=== PATIENT | female | born 1940 | race Caucasian/White ===

== ENCOUNTER 2018-01-17 08:45 | Day surgery (SDC) | payer MEDICARE, OTHER ==
[~2018-01-17] VITALS: Ht 170.2 cm; Wt 88.5 kg
[~2018-01-17 08:45] MED LIST: ATENOLOL50 MG PO; FLUOXETINE HCL20 MG PO; HYDROCHLOROTH12.5 M1 PO; NAPROXEN500 MG PO; NORVASC5 MG PO; PRAVASTATIN SOD40 MG PO; ULTRAM50 MG PO
--- NOTE | 2018-01-17 12:25 | NUR ---
01/17/18 1225 Ariadne Alcala 1219 TO PACU, RESP EVEN UNLABORED. BOTH HANDS ELEVATED ON PILLOWS 1223 DENIES PAIN OR NAUSEA AT THIS TIME.
--- NOTE | 2018-01-17 12:54 | NUR ---
CRACKERS AND ICED WATER GIVEN. CALL LIGHT W/IN REACH. PT DENIES ADD'L NEEDS @ THIS TIME.
--- NOTE | 2018-01-17 13:53 | NUR ---
PT UP TO BR W/2 RN STANDBY. PT AMBULATES TO THE BATHROOM WELL W/LIMP WHICH IS BASELINE. PATIENT REPORTS SUCCESSFUL VOID AND AMBULATES BACK TO THE BATHROOM AND REPORTS LIGHT HEADEDNESS AND USES THE WALL TO STEADY HERSELF ON THE WAY BACK FROM THE BATHROOM. OXYGEN IS REMOVED PRIOR TO AMBULATING TO THE BATHROOM AND PATIENT O2 SATURATION IS 89-91% ON ROOM AIR WHEN SHE RETURNS TO HER ROOM. SANDWICH ORDERED FROM DIETARY. MORE ICED WATER GIVEN. PT CONTINUOUS TO BE MONITORED BY CONTINUOUS PULSE OXIMETERY.
--- NOTE | 2018-01-17 15:03 | NUR ---
PT REPORTS FEELING "NORMAL" AFTER EATING HER SANDWICH. DENIES LIGHT HEADEDNESS. PT'S COUSIN IS @ THE BS AND REPORTS SHE IS STAYING WITH THE PATIENT AT HOME FOR "A COUPLE OF DAYS". PT HAS NO DIFFICULTY EATING THE SANDWICH. DC INSTRUCTIONS ARE GIVEN IN PRESENCE OF HER COUSIN AND BOTH VERBALIZE UNDERSTANDING OF INSTRUCTIONS.
--- NOTE | 2018-01-17 15:39 | NUR ---
DARIN 1515: PT DRESSES SELF IN PRESENCE OF SY, COUSIN AND TRANSFERS HERSELF TO AND THEN TO PERSONAL VEHICLE AND DOES THAT WELL.
--- NOTE | 2018-01-19 07:09 | OR ---
[facility] [address], [place] [address] Signed DATE OF OPERATION: 01/17/2018 SURGEON: Vega Muhammad MD PREOPERATIVE DIAGNOSIS: Bilateral displaced distal radial fracture. POSTOPERATIVE DIAGNOSIS: Bilateral displaced distal radial fracture. PROCEDURES: Open reduction and internal fixation, right distal radial fracture. Closed reduction and percutaneous cannulated screw fixation of left distal radius fracture. ANESTHESIA: General. SPECIMENS AND COMPLICATIONS: There were no specimens or complications. TOURNIQUET TIME: About 45 minutes on the right and about 30 minutes on the left. WHAT WAS DONE: The patient was taken to the operating room. After anesthesia was induced and airway secured, the patient was positioned, prepped and draped in the routine sterile fashion on the right side. The arm was exsanguinated with an Esmarch bandage, the fracture was manipulatively reduced and it was placed in 5 pounds of fingertrap traction. A volar approach was made directly over the FCR tendon. The skin was divided sharply. Subcutaneous tissue was bluntly spread. The FCR tendon sheath was opened on the volar surface and then on the deep surface. A small self-retaining retractor was then placed and we swept all the volar contents in an ulnar direction. We then elevated a small portion of the pronator quadratus. This enabled us to fine tune the reduction under direct vision. Once we had done that we chose an 8 x 3 distal volar radial plate and positioned it under fluoroscopic control. It was secured proximally with three 2.6 mm screws and then distally with four smooth buttress pins. AP, lateral, and oblique fluoroscopy confirmed good alignment, position, and a stable construct. The wound was gently irrigated, closed in standard fashion, and a sterile dressing applied. Attention was then directed to the left side. Again, it was prepped and draped. Electronically Signed By: VEGA MUHAMMAD MD 01/19/18 0709 PATIENT NAME: PIPER MARSHALL OPERATIVE REPORT DATE OF : 40 REPORT #: [id number] PHYSICIAN: VEGA MUHAMMAD MD PCP: PRISCILA PATEL MD REPORT IS CONFIDENTIAL AND NOT TO BE RELEASED WITHOUT AUTHORIZATION [facility] [address], [place] [address] Signed Because there was an IV in the antecubital fossa, we simply wrapped the arm with an Esmarch bandage and left it wrapped around the mid forearm. We then reduced the fracture manipulatively. We made a small incision over the tip of the radial styloid. Using the tip of a #15 blade, we elevated the contents of the first dorsal compartment and gently reflected them out of the way. Then, under biplanar fluoroscopic control, we drill two guide pins from the 3.0 cannulated screw sets across the primary fracture line. Once we were happy with alignment and position, we replaced them with partially two threaded screws. This gave us good alignment, good position, and stable fixation. The wound was gently irrigated, closed in standard fashion and a sterile dressing applied. She was then placed in bilateral volar wrist splints. She was awakened and taken to the recovery room, where she arrived in stable condition. Counts were correct and antibiotic protocols were followed. Vega Muhammad MD WFB/MODL /[id number] Copies: ~ Electronically Signed By: VEGA MUHAMMAD MD 01/19/18 0709 PATIENT NAME: PIPER MARSHALL OPERATIVE REPORT DATE OF : 40 REPORT #: [id number] PHYSICIAN: VEGA MUHAMMAD MD PCP: PRISCILA PATEL MD REPORT IS CONFIDENTIAL AND NOT TO BE RELEASED WITHOUT AUTHORIZATION
== END 2018-01-17 15:20 | disposition home or self-care (01) ==
LOC: DS 08:45
PROVIDERS: Orthopaedic Surgery
PROC: 0PSJ34Z Reposition Left Radius with Internal Fixation Device, Percutaneous Approach (ICD-10-PCS; 2018-01-17)
PROC: 0PSH04Z Reposition Right Radius with Internal Fixation Device, Open Approach (ICD-10-PCS; principal; 2018-01-17 10:15)
DX: S52.501A Unspecified fracture of the lower end of right radius, initial encounter for closed fracture (principal); S52.502A Unspecified fracture of the lower end of left radius, initial encounter for closed fracture; S82.002A Unspecified fracture of left patella, initial encounter for closed fracture; I10 Essential (primary) hypertension; Z79.1 Long term (current) use of non-steroidal anti-inflammatories (NSAID); Z79.891 Long term (current) use of opiate analgesic; Z79.899 Other long term (current) drug therapy; W18.30XA Fall on same level, unspecified, initial encounter
CPT/HCPCS: 01830; 73100; C1713; J0131; J0330; J0690; J1100; J1885; J2250; J2405; J2704; J2795; J3010; J3475; J7120